=== PATIENT | female | born 1960 | race Asian ===

== ENCOUNTER 2017-09-02 13:01 | Outpatient (CLI) | payer OTHER ==
--- NOTE | 2017-09-03 12:15 | MMO ---
BILATERAL SCREENING MAMMOGRAM: HISTORY: Screening. COMPARISON: Mammograms from 2016, 2013, and 2010. TECHNIQUE: Bilateral screening CC and MLO mammograms are performed with computer aided detection. FINDINGS: The breasts are heterogeneously dense, which may obscure small masses. Calcifications in the left br east are similar. IMPRESSION: BI-RADS 2: Benign findings. Continued annual mammographic screening recommended. POS: [facility]
== END 2017-09-02 13:02 | disposition home or self-care (01) ==
LOC: SCSMAMMO 13:01
PROVIDERS: ATTEND Family Medicine
DX: Z12.31 Encounter for screening mammogram for malignant neoplasm of breast (principal)
CPT/HCPCS: 77067

== ENCOUNTER 2019-03-30 12:05 | Outpatient (CLI) | payer OTHER ==
--- NOTE | 2019-03-30 14:32 | MMO ---
Bilateral MAMMO Bilat Screen [facility]. CLINICAL HISTORY: Patient is 58 years old and is seen for screening. The patient has no family history of breast cancer. The patient has no personal history of cancer. VIEWS: The views performed were: bilateral craniocaudal and bilateral mediolateral oblique. FILMS COMPARED: The present examination has been compared to prior imaging studies performed at [place] on 11/28/2015 and 09/02/2017. This study has been interpreted with the assistance of computer-aided detection. MAMMOGRAM FINDINGS: The breasts are heterogeneously dense, which could obscure a lesion on mammography. There are no suspicious masses, suspicious calcifications, or new areas of architectural distortion. IMPRESSION: THERE IS NO MAMMOGRAPHIC EVIDENCE OF MALIGNANCY. A ROUTINE FOLLOW-UP MAMMOGRAM IN 1 YEAR IS RECOMMENDED. ACR BI-RADS Category 1 - Negative MAMMOGRAPHY NOTE: 1. A negative mammogram report should not delay a biopsy if a dominant of clinically suspicious mass is present. 2. Approximately 10% to 15% of breast cancers are not detected by mammography. 3. Adenosis and dense breasts may obscure an underlying neoplasm. Reported by: EARLENE TAPIA MD Electonically Signed: [id number]
== END 2019-03-30 12:06 | disposition home or self-care (01) ==
LOC: SCSMAMMO 12:05
PROVIDERS: ATTEND Family Medicine
DX: Z12.31 Encounter for screening mammogram for malignant neoplasm of breast (principal)
CPT/HCPCS: 77067

== ENCOUNTER 2021-05-15 17:30 | Outpatient (CLI) | payer OTHER | END 2021-05-15 17:31 | disposition home or self-care (01) | LOC: SLEEPLAB 17:30 | PROVIDERS: ATTEND Family Medicine | DX: G47.33 Obstructive sleep apnea (adult) (pediatric) (principal); R53.83 Other fatigue; R51.9 Headache, unspecified; K21.9 Gastro-esophageal reflux disease without esophagitis; R06.83 Snoring; G47.00 Insomnia, unspecified | CPT/HCPCS: 95806 ==